=== PATIENT | male | born 1950 | race Caucasian/White ===

== ENCOUNTER 2017-04-16 14:03 | Day surgery (SDC) | payer MEDICARE, OTHER ==
[2017-04-16] VITALS (9 sets, daily range): BP systolic 130–158; BP diastolic 72–91; PULSE 70–88; TEMP 97.9–98.3
[~2017-04-16] VITALS: Ht 177.8 cm; Wt 100.5 kg
[~2017-04-16 14:03] MED LIST: PLAVIX 75MG TAB75 MG PO; TIROSINT150 MC1 PO; ZOCOR 20MG20 MG PO
[2017-04-16] MEDS ORDERED: PYRIDIUM 100MG100 MG PO (14:38)
[2017-04-16] MEDS ORDERED: NORCO 325 MG-51 TAB PO (14:38)
[2017-04-16] MEDS ORDERED: CIPRO 500MG TA500 MG PO (14:39)
[2017-04-17 04:11] VITALS: BP 103/64; PULSE 63; TEMP 98.1
[2017-04-17] MEDS ORDERED: CIPRO 500MG TA500 MG PO (08:14)
[2017-04-17] MEDS ORDERED: NORCO 325 MG-51 TAB PO (08:15)
[2017-04-17] MEDS ORDERED: COLACE 100100 MG/CAP PO (08:17)
== END 2017-04-17 11:28 | disposition home or self-care (01) ==
LOC: SDCO 14:03 → SURG 19:23 → SDCO 04-17 11:28
DX: N20.1 Calculus of ureter (principal); I10 Essential (primary) hypertension; I25.10 Atherosclerotic heart disease of native coronary artery without angina pectoris; E78.5 Hyperlipidemia, unspecified; Z86.73 Personal history of transient ischemic attack (TIA), and cerebral infarction without residual deficits; Z79.01 Long term (current) use of anticoagulants; Z95.1 Presence of aortocoronary bypass graft
CPT/HCPCS: OP; C1769; C2617; J0360; J0690; J1100; J2405; J2704; J3010; J7120; Q9967

== ENCOUNTER 2017-05-12 11:36 | Day surgery (SDC) | payer MEDICARE, OTHER ==
[~2017-05-12] VITALS: Ht 177.8 cm; Wt 100.0 kg
[~2017-05-12 11:36] MED LIST changes: +CIPRO 500MG TA500 MG PO; +COLACE 100100 MG/CAP PO; +NORCO 325 MG-51 TAB PO; +PYRIDIUM 100MG100 MG PO
[2017-05-12 12:31] VITALS: BP 155/97; PULSE 75; TEMP 98.3
[2017-05-12 15:15] VITALS: BP 140/76; PULSE 81; TEMP 98.2
[2017-05-12 15:30] VITALS: BP 142/82; PULSE 79
[2017-05-12] MEDS ORDERED: NORCO 325 MG-51 TAB PO (15:32)
[2017-05-12] MEDS ORDERED: COLACE 100100 MG/CAP PO (15:33)
[2017-05-12] MEDS ORDERED: PYRIDIUM 100MG100 MG PO (15:34)
[2017-05-12 15:45] VITALS: BP 148/83; PULSE 80; TEMP 98.1
== END 2017-05-12 16:00 | disposition home or self-care (01) ==
LOC: SDCO 11:36
DX: N20.1 Calculus of ureter (principal); I10 Essential (primary) hypertension; I25.10 Atherosclerotic heart disease of native coronary artery without angina pectoris; I25.2 Old myocardial infarction; E78.5 Hyperlipidemia, unspecified; Z79.01 Long term (current) use of anticoagulants; Z95.1 Presence of aortocoronary bypass graft; Z86.73 Personal history of transient ischemic attack (TIA), and cerebral infarction without residual deficits; Z82.49 Family history of ischemic heart disease and other diseases of the circulatory system; Z80.1 Family history of malignant neoplasm of trachea, bronchus and lung
CPT/HCPCS: C1758; C1769; C1894; C2617; J0360; J2270; J2405; J2704; J3010; J7120